=== PATIENT | male | born 1975 | race Caucasian/White ===

== ENCOUNTER 2023-04-02 12:36 | Outpatient (CLI) | payer BC, SELFPAY ==
--- NOTE | ~2023-04-02 | XR_ITS ---
EXAMINATION: XR lumbar spine 2-3V DATE: 04/02/2023 13:26 INDICATION: Low back pain TECHNIQUE: Anteroposterior and lateral views of the lumbar spine, and cone-down lateral view of the l umbosacral junction were obtained. COMPARISON: None. FINDINGS: Bone alignment is normal. There is no fracture. The vertebral body heights and intervertebr al disc spaces are maintained. Small degenerative osteophytes project from the anterior endplates of multiple vertebral bodies. There is mild facet joint osteoarthritis of the lower lumbar spine. Phlebo liths are noted in the right pelvis. Surgical clips project over the left pelvis. IMPRESSION: 1. Mild lumbar spondylosis without acute findings. Reviewed, dictated and finalized at location L. BUFFER
--- NOTE | ~2023-04-02 | XR_ITS ---
EXAMINATION: XR hip LT min 2V INDICATION: Left hip pain TECHNIQUE: Two views of the left hip are obtained. COMPARISON: None available FINDINGS: Bone alignment is normal. There is no fracture. There is moderate osteoarthritis of the hip . Phleboliths are noted in the right pelvis. There are surgical clips projecting in the left pelvis. IMPRESSION: 1. Moderate left hip osteoarthritis without acute findings. Reviewed, dictated and finalized at location L. [employer] ASSISTANT
== END 2023-04-02 12:37 | disposition home or self-care (01) ==
PROVIDERS: PCP Physician Assistant; Visit Provider Physician Assistant
DX: M25.552 Pain in left hip (principal); M54.50 Low back pain, unspecified; M43.06 Spondylolysis, lumbar region
CPT/HCPCS: 72100; 73502